=== PATIENT | female | born 1960 | race Two or more races ===

== ENCOUNTER 2023-07-11 00:15 | Emergency (ER) | payer OTHER ==
[~2023-07-11] VITALS: Ht 162.6 cm; Wt 63.5 kg
[2023-07-11] MEDS ORDERED: TDAP [DIPH/PERTUSSIS/TET] 0.5 ML VIAL IM ONE ×2 (01:00→01:02)
[2023-07-11 02:33] VITALS: BP 143/82; TEMP 98.1; O2SAT 98
== END 2023-07-11 02:33 | disposition home or self-care (01) ==
LOC: ER 00:45
DX: S91.011A Laceration without foreign body, right ankle, initial encounter (principal); W25.XXXA Contact with sharp glass, initial encounter; Y93.89 Activity, other specified; Y92.89 Other specified places as the place of occurrence of the external cause; Y99.8 Other external cause status
CPT/HCPCS: 73610-TC; 90715

== ENCOUNTER 2023-07-27 16:34 | Emergency (ER) | payer OTHER ==
[~2023-07-27] VITALS: Ht 162.6 cm; Wt 61.2 kg
[2023-07-27 17:35] VITALS: BP 132/68; TEMP 98.6; O2SAT 100
== END 2023-07-27 17:35 | disposition home or self-care (01) ==
LOC: ER 16:38
DX: S91.011D Laceration without foreign body, right ankle, subsequent encounter (principal); X58.XXXD Exposure to other specified factors, subsequent encounter